=== PATIENT | female | born 1995 | race Caucasian/White ===

== ENCOUNTER 2020-07-12 10:54 | Emergency (ER) | payer OTHER ==
[~2020-07-12] VITALS: Ht 154.9 cm; Wt 63.5 kg
[~2020-07-12 10:54] MED LIST: COL100 PO; FER300 PO
[2020-07-12 11:04] VITALS: Ht 154.9 cm; Wt 63.5 kg
[2020-07-12 12:20] LABS: BASOPHIL % 0.6 % (0-2); PLATELET COUNT 237 x10^3mcL (130-400); RED CELL DISTRIBUTION WIDTH 12.4 % (11.5-14.5)
[2020-07-12 12:28] LABS: microscopic required? YES; urine erythrocyte TRACE (NEGATIVE)
[2020-07-12 16:25] VITALS: BP 128/79
== END 2020-07-12 16:25 | disposition home or self-care (01) ==
LOC: ED 10:54
PROVIDERS: Emergency Medicine
DX: O20.0 Threatened abortion (principal); O99.511 Diseases of the respiratory system complicating pregnancy, first trimester; J45.909 Unspecified asthma, uncomplicated; Z3A.01 Less than 8 weeks gestation of pregnancy
CPT/HCPCS: J7050; J7060